=== PATIENT | female | born 1975 | race Caucasian/White ===

== ENCOUNTER 2016-06-15 17:47 | Emergency (ER) | payer BC, OTHER ==
--- NOTE | 2016-06-15 19:01 | ERNOTE ---
ENT HPI Date of Service: 06/15/16 Time Seen by Provider: 06/15/16 18:33 Source: patient Exam Limitations: no limitations - Immun/Allergies/Home Medications Immunizations: IMMUNIZATION HX Immunizations Up to Date Yes History of Influenza Vaccine Yes Hx Pneumococcal Vaccination No Allergies/Adverse Reactions: Allergies Allergy/AdvReac Type Severity Reaction Status Date / Time No Known Allergies Allergy Verified 12/04/12 21:21 Home Medications: HOME MEDICATIONS Fenofibrate [Lofibra] 160 mg PO DAILY 12/04/12 [Last Taken Unknown] LORazepam [Ativan] 0.5 mg PO DAILY PRN 12/28/12 [Last Taken Unknown] Control 1 tab PO DAILY 11/10/13 [Last Taken Unknown] - History of Present Illness Narrative: Pt. comes in with c/o floaters obstructing her field of vision for twenty minutes this afternoon. Pt. states that the symptoms have resolved at this time. Pt. denies any prehospital treatment, alleviating factors, aggravating factors, pain, or other symptoms. Review of Systems - Review of Systems Constitutional: Present: no symptoms reported. Absent: recent illness, fever, chills, weakness, fatigue, malaise EYE: Present: vision changes. Absent: eye pain, blurred vision, double vision ENT: Present: no symptoms reported Respiratory: Present: no symptoms reported. Absent: shortness of breath, cough , wheezing Cardiology: Present: no symptoms reported. Absent: chest pain, palpitations, edema Neurological: Present: no symptoms reported. Absent: headache, dizziness/light- headedness, numbness, tingling All Other Systems: All systems neg except as marked - Patient's Past Medical History Patient History - Medical: Anxiety, Migraines, Obesity Patient History - Cardiac/Respiratory: CPAP/BiPAP Home Use, Sleep Apnea Patient History - Cancer: No Hx of Cancer Patient History - Surgical Procedures: Other Patient History - Other: None LMP (females 10-50): 3 months - Social History Living Situations: alone Abuse History: No History of abuse Psych History: Hx of Anxiety Smoking Status: Never smoker Alcohol Use: rarely Drug Use: none - Immunizations Immunizations Up to Date: Yes Hx Pneumococcal Vaccination: No History of Influenza Vaccine: Yes Physical Exam - Physical Exam General Appearance: Present: wd/wn, alert, no apparent distress Eye Exam: Normal inspection: bilateral, PERRL: bilateral, EOMI: bilateral, Other : bilateral - fundal exam WNL Ears, Nose, Throat: Present: normal ENT inspection, hearing grossly normal, normal pharynx Neck: Present: normal inspection, nontender. 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 Absent: pallor, skin rash ED Progress - Date and Time Seen: Date and Time: 06/15/16 18:58 As pt. symptoms resolved after she stopped working on the computer and she works on the computer often feel that this is likely eyestrain. Will have pt. follow up with opthamology - Vital Signs Patient's Vital Signs:: I have reviewed the patient's vital signs. Vital Signs: Vital Signs 06/15/16 18:08 Temperature 37.1 C Pulse Rate 84 Respiratory 18 Rate Blood Pressure 178/110 O2 Sat by Pulse 97 Oximetry - Progress/Reassessment Chief Complaint: Eye Injury/Trauma Departure Clinical Impression: Eye strain, bilateral - Departure Disposition: Home self-care Condition: Good Instructions: Blurred Vision Additional Instructions: Please follow up with opthamologist this week for follow up. Referrals: Abdulaziz Hannah MD [Primary Care Provider] - Anthony Virk MD [Staff Physician] -
[2016-06-15 19:07] VITALS: BP 146/89
== END 2016-06-15 20:18 | disposition home or self-care (01) ==
LOC: ER 17:47
DX: H53.10 Unspecified subjective visual disturbances (principal); G47.30 Sleep apnea, unspecified; Z99.81 Dependence on supplemental oxygen

== ENCOUNTER 2016-07-05 06:10 | Emergency (ER) | payer BC, OTHER ==
--- NOTE | 2016-07-05 06:43 | ERNOTE ---
<Augustine Amor - Last Filed: 07/05/16 08:07> Abdominal HPI - Narrative Date of Service: 07/05/16 - General Chief Complaint: Abdominal Pain Time Seen by Provider: 07/05/16 06:42 Source: patient Exam Limitations: no limitations - Immun/Allergies/Home Medications Immunizatons: IMMUNIZATION HX Immunizations Up to Date Yes History of Influenza Vaccine Yes Hx Pneumococcal Vaccination No Allergies/Adverse Reactions: Allergies No Known Allergies Allergy (Verified 07/05/16 06:25) Home Medications: HOME MEDICATIONS Fenofibrate [Lofibra] 160 mg PO DAILY 12/04/12 [Last Taken Unknown] LORazepam [Ativan] 0.5 mg PO DAILY PRN 12/28/12 [Last Taken Unknown] Control 1 tab PO DAILY 11/10/13 [Last Taken Unknown] - History of Present Illness Narrative: Presents with c/o periumbilical pain with suprapubic pressure, onset earlier this morning, described as crampy and associated with nausea w/o vomiting. No report of diarrhea. Claims she took some tylenol for pain and now pain reduced to a 2/10. Date (Duration): 07/05/16 Timing: resolved prior to arrival - almost Quality: mild, cramping, fullness Activities at Onset: none Modifying Factors - (Improves): Present: analgesics Associated Symptoms: Present: nausea. Absent: back pain, diarrhea-gross blood, diarrhea-mucous, fever/chills, vomiting Prior Abdominal Problems: Present: none Review of Systems - Review of Systems Constitutional: Present: no symptoms reported EYE: Present: no symptoms reported ENT: Present: no symptoms reported Respiratory: Present: no symptoms reported Cardiology: Present: no symptoms reported Gastrointestinal/Abdominal: Present: See HPI Genitourinary: Present: no symptoms reported Musculoskeletal: Present: no symptoms reported Skin: Present: no symptoms reported Neurological: Present: no symptoms reported Endocrine: Present: no symptoms reported Hematologic/Lymphatic: Present: no symptoms reported Psych: Present: no symptoms reported All Other Systems: All systems neg except as marked - Patient's Past Medical History Patient History - Medical: Anxiety, Migraines, Obesity Patient History - Cardiac/Respiratory: CPAP/BiPAP Home Use, Sleep Apnea Patient History - Cancer: No Hx of Cancer Patient History - Surgical Procedures: Other Patient History - Other: None LMP (females 10-50): 1 month - Social History Living Situations: alone Abuse History: No History of abuse Psych History: Hx of Anxiety Smoking Status: Never smoker Alcohol Use: rarely Drug Use: none - Immunizations Immunizations Up to Date: Yes Hx Pneumococcal Vaccination: No History of Influenza Vaccine: Yes Physical Exam - Physical Exam General Appearance: Present: wd/wn, alert, no apparent distress Neck: Present: normal inspection, nontender Respiratory: Present: no respiratory distress, normal breath sounds, no accessory muscle use, chest nontender, lungs clear Cardiovascular/Chest: Present: regular rate, rhythm, no murmur Gastrointestinal/Abdominal: Present: normal bowel sounds, soft, no organomegaly , tenderness - mild suprapubic discomfort. Back Exam: Present: normal inspection, normal range of motion, no CVA tenderness , no vertebral tenderness Neurological Exam: Present: alert, oriented Skin Exam: Present: normal color, warm/dry ED Progress - Vital Signs Vital Signs: Vital Signs 07/05/16 06:18 Temperature 36.3 C L Pulse Rate 86 Respiratory 15 Rate Blood Pressure 136/86 O2 Sat by Pulse 97 Oximetry - EKG EKG: atrial fibrillation - Progress/Reassessment Chief Complaint: Abdominal Pain - Transfer of Care Physician Sign Out: Augustine Amor Receiving Physician: Nery Welch Pending Results: Labs - UA Departure - Departure Clinical Impression: Abdominal pain Qualifiers: Abdominal location: unspecified location Qualified Code(s): R10.9 - Unspecified abdominal pain Constipation Qualifiers: Constipation type: unspecified constipation type Qualified Code(s): K59.00 - Constipation, unspecified Disposition: Home self-care Condition: Good Instructions: Abdominal Pain, Adult, [id number] Additional Instructions: the pain was most likely caused by constipation as it is resolved now no further treatment is needed at this time Referrals: Abdulaziz Hannah MD [Primary Care Provider] - <Nery Welch - Last Filed: 07/05/16 08:46> Abdominal HPI - Immun/Allergies/Home Medications Immunizatons: IMMUNIZATION HX Immunizations Up to Date Yes History of Influenza Vaccine Yes Hx Pneumococcal Vaccination No ED Progress - Results and Orders Patient's Lab Results:: I have reviewed the patient's lab results. - Vital Signs Patient's Vital Signs:: I have reviewed the patient's vital signs. Vital Signs: Vital Signs 07/05/16 06:18 Temperature 36.3 C L Pulse Rate 86 Respiratory 15 Rate Blood Pressure 136/86 O2 Sat by Pulse 97 Oximetry - Progress/Reassessment Progress Note-Subjective: 07/05/16 08:42 Patient states that she started to have abdominal pain around 05:30 this am. She had a BM shortly after, the pain lasted abut another 20 minutes, then resolved. She has no pain currently. abdomen soft and non tender on exam explained test results
--- OUTSIDE RECORDS SUMMARY | 2016-07-05 06:49 | XMS REPORT | Continuity of Care Document ---
:1975 Author Organization [facility] ([facility]) Address [address] [place] [address] Phone [phone] Care Team Providers Name Role Phone Unavailable Primary Care Provider Unavailable Source Comments This disclosure is being made pursuant to the Care Everywhere program, applicable federal and state laws, and may not contain all informaitonavailable regarding this patient.[facility] ([facility]) Active Allergies and Adverse Reactions Not on File Current Medications Not on file Active Problems Not on file Social History Tobacco Use Types Packs/Day Years Used Date Never Assessed Plan of Care Health Maintenance Due Date Last Done Comments Hepatitis B Vaccine (1 of 3 - Primary Series) 1975 Tdap Vaccine 1988 Lipid Disorder Screening 1995 MMR Vaccine 1995 Td Vaccine 1995 Cervical Cancer Screening 2007 Influenza Vaccine: Seasonal (#1) 12/15/2015 Results from Last 3 Months Not on file
[2016-07-05] MEDS ORDERED: ONDANSETRON 4 MG TAB.RAPDIS PO ONE (06:55)
[2016-07-05] MEDS ORDERED: ONDANSETRON 4 MG TAB.RAPDIS ONE (07:05)
[2016-07-05 07:10] LABS: Hematocrit 37.8 % (37.0-47.0); Hemoglobin 12.1 gm/dL (12.5-16.0); Mean Cell Volume 82.4 fl (78-100); Mean Corpuscular Hemoglobin 26.4 pg (27-31); Mean Platelet Volume 9.4 fl (6.0-9.5); Neutrophil # 6.6 K/mm3 (1.3-6.0); Neutrophil % 65.8 % (42-75.0); Platelet Count 321 K/mm3 (150-450); Red Blood Count 4.59 M/mm3 (4.2-5.4); Red Cell Distribution Width 14.5 % (11.5-14.0)
[2016-07-05 07:28] LABS: Albumin * 3.3 gm/dl (3.4-5.0); Anion Gap 16.1 mmol/L (6.8-13.8); BUN/Creatinine Ratio 19.4 (9.0-21.6); Bilirubin, Total 0.2 mg/dL (0.0-1.1); Ca. Corrected For Albumin 8.8 mg/dL (8.4-10.2); Calcium * 8.6 mg/dL (7.9-10.9); Potassium 4.1 mmol/L (3.4-4.6); Total Protein 6.8 gm/dL (6.2-8.2)
[2016-07-05 07:59] LABS: Urine Bilirubin Negative (NEGATIVE); Urine Ketone Negative (NEGATIVE); Urine Nitrite Negative (NEGATIVE); Urine Protein Negative (NEGATIVE); Urine Urobilinogen Normal (NORMAL)
[2016-07-05 08:08] LABS: Urine Appearance Clear; Urine Blood 10 /ul (NEGATIVE); Urine Color Yellow
[2016-07-05 08:09] LABS: Urine Bacteria 1+; Urine RBC 0-5 /hpf (0-5); Urine WBC 0-5 /hpf (0-5)
[2016-07-05 08:50] VITALS: BP 134/86
== END 2016-07-05 08:47 | disposition home or self-care (01) ==
LOC: ER 06:10
DX: R10.33 Periumbilical pain (principal); K59.00 Constipation, unspecified; F41.9 Anxiety disorder, unspecified

== ENCOUNTER 2017-03-09 00:09 | Emergency (ER) | payer BC, OTHER ==
--- NOTE | 2017-03-09 00:30 | ERNOTE ---
Medical Problem HPI - Narrative Date of Service: 03/09/17 - General Chief Complaint: Laceration Time Seen by Provider: 03/09/17 00:24 - Immun/Allergies/Home Medications Immunizations: IMMUNIZATION HX Immunizations Up to Date Yes History of Influenza Vaccine No Hx Pneumococcal Vaccination No Allergies/Adverse Reactions: Allergies No Known Allergies Allergy (Verified 03/09/17 00:18) Home Medications: HOME MEDICATIONS Fenofibrate [Lofibra] 160 mg PO DAILY 12/04/12 [Last Taken Unknown] LORazepam [Ativan] 0.5 mg PO DAILY PRN 12/28/12 [Last Taken Unknown] Control 1 tab PO DAILY 11/10/13 [Last Taken Unknown] metFORMIN HCL [Glumetza] 500 mg PO BID 03/09/17 [Last Taken Unknown] - History of Present History Narrative: 41-year-old female with superficial lacerations to the distal phalanx of the third and fourth digits to the left hand. This happened with a rotary tool prior to coming into the hospital. She wasn't too worried about them but she called her insurance person who recommended that she be seen in the ER because they involve the fingers and they are close to the joints. Patient has mild pain bleeding stopped prior to arrival Review of Systems - Review of Systems Constitutional: Present: no symptoms reported EYE: Present: no symptoms reported ENT: Present: no symptoms reported Respiratory: Present: no symptoms reported Cardiology: Present: no symptoms reported Gastrointestinal/Abdominal: Present: no symptoms reported Genitourinary: Present: no symptoms reported Musculoskeletal: Present: no symptoms reported Skin: Present: other - lacerations as described All Other Systems: All systems neg except as marked - Patient's Past Medical History Patient History - Medical: Anxiety, Diabetes Type 2, Migraines, Obesity Patient History - Cardiac/Respiratory: CPAP/BiPAP Home Use, Sleep Apnea Patient History - Cancer: No Hx of Cancer Patient History - Surgical Procedures: No surgical history Patient History - Other: None LMP (Calendar): 03/02/17 - Social History Living Situations: home Abuse History: No History of abuse Psych History: Hx of Anxiety, Current tx/ever been on anti-depressants or anti- anxiety meds Smoking Status: Never smoker Alcohol Use: none Drug Use: none - Immunizations Immunizations Up to Date: Yes Hx Pneumococcal Vaccination: No History of Influenza Vaccine: No Physical Exam - Physical Exam General Appearance: Present: wd/wn, alert, no apparent distress Extremity Exam: Present: other - patient has superficial lacerations to the distal phalanx of the left third and fourth fingers. Bleeding is controlled. These do not even penetrate through the epidermis and dermis. There is absolutely no separation of the layers of the skin. Distal neurovascular is intact Skin Exam: Present: other - as described in the extremity exam ED Progress - Vital Signs Patient's Vital Signs:: I have reviewed the patient's vital signs. Vital Signs: Vital Signs 03/09/17 00:14 Temperature 36.2 C L Pulse Rate 82 Respiratory 18 Rate Blood Pressure 156/112 O2 Sat by Pulse 98 Oximetry - Progress/Reassessment Chief Complaint: Laceration Departure Clinical Impression: Laceration - Departure Disposition: Home self-care Condition: Good Instructions: Laceration Care, Adult, [id number] Additional Instructions: Also discussed these lacerations are really not deep enough or causing enough separation of the skin to require stitches. I would suggest that he just let them be the next 24 hours. Your body should form a scab over them and they should heal shortly after that. Darin family doctor and set up a follow-up appointment. If you develop fever, pus draining out, redness, or severe pain return to the ER. Referrals: Abdulaziz Hannah MD [Primary Care Provider] -
[2017-03-09 00:43] VITALS: BP 157/87
== END 2017-03-09 00:29 | disposition home or self-care (01) ==
LOC: ER 00:09
DX: S61.213A Laceration without foreign body of left middle finger without damage to nail, initial encounter (principal); S61.215A Laceration without foreign body of left ring finger without damage to nail, initial encounter; W29.8XXA Contact with other powered hand tools and household machinery, initial encounter; Y93.9 Activity, unspecified; E11.9 Type 2 diabetes mellitus without complications; F41.9 Anxiety disorder, unspecified